=== PATIENT | female | born 1960 | race Caucasian/White ===

== ENCOUNTER → 2018-03-22 | Day surgery (SDC) | payer BC ==
[~2018-03-22] VITALS: Ht 170.2 cm; Wt 103.0 kg
[~2018-03-22] MED LIST: ACETAMINOPHEN 1000 MG/100 ML 100 ML IV ONE; APREPITANT 40 MG CAP ONE; BUPIVACAINE/EPINEPHRINE 0.5% PF 10 ML VIAL ONE; CHLORHEXIDINE GLUCONATE 2 % 1 PACK (2 CLOTHS) TOPICAL PRN; DEXAMETHASONE SOD PHOS 4 MG/ML VIAL IV ONE; DO NOT ADM ANY ANTICOAGULANT DRUGS PRN; FAMOTIDINE 20 MG/2 ML VIAL ONE; FERR325T18 PO; GLYCOPYRROLATE 1 MG/5 ML SYRINGE IV PUSH ONE; KETOROLAC TROMETHAMINE 30 MG/ML (IVP) VIAL IV PUSH ONE; LACTATED RINGER'S 1000 ML INJ 1,000 ML IV ONE; LACTATED RINGER'S 1000 ML IV PRN; LIDOCAINE HCL 1% PF 5 ML SYRINGE OTHER ONE; METHYLENE BLUE 10 MG/ML VIAL ONE; METOPROLOL TARTRATE 25 MG TAB PO PRN; MIDAZOLAM HCL 2 MG/2 ML VIAL ONE; MORPHINE SULFATE 4 MG/ML INJ IV PUSH PRN; MULT-65 PO; NEOSTIGMINE 5 MG/5 ML SYRINGE IV PUSH ONE; NORT1TAB PO; ONDANSETRON HCL 4 MG/2 ML VIAL IV PUSH SCH; ONDANSETRON ODT 4 MG TAB PO PRN; PHENYLEPH/NS 1000 MCG/10 ML SYR IV ONE; POVIDONE IODINE 5% (ANTISEPSIS KIT) 4 APPLICATIONS EACH NARE PRN; PROPOFOL 200 MG/20 ML AMP IV ONE; ROCURONIUM INJ 50 MG/5 ML SYRINGE IV PUSH ONE; SODIUM CHLORID 0.9% 500 ML IV PRN; SUDO60TA2 PO; VITA500T83 PO; VITACAP7 PO; oxyCODONE/ACETAMINOPHEN 5 MG/325 MG TAB PO PRN
[2018-03-22] MEDS: ceFAZolin 2 GM PREMIX 50 ML IV SCH ×6 (08:21→10:51)
[2018-03-22 12:15] VITALS: BP 116/65; PULSE 71; RESP 18; TEMP 97.8; O2SAT 97
--- NOTE | 2018-03-22 22:16 | EKG ---
Date Performed: 03/22/2018 Time Performed: 07:04:32 PTAGE: 57 years EKG: Sinus rhythm WITH OCCASIONAL SUPRAVENTRICULAR PREMATURE COMPLEXES BORDERLINE ECG PREVIOUS TRACING : 10/07/2010 13.39 Since the previous tracing, no significant change noted DOCTOR: Jose Castle Interpretating Date/Time 03/22/2018 22:15:34
--- NOTE | 2018-03-26 11:01 | MP ---
cc: Brenden Rolon MD DATE OF OPERATION: 03/22/2018 DATE OF OPERATION: 03/22/2018. PREOPERATIVE DIAGNOSIS: Dysfunctional gastric band. POSTOPERATIVE DIAGNOSIS: Slipped gastric band. PROCEDURE PERFORMED: Removal of gastric band and takedown of gastrogastric plication. SURGEON: Manolo Rolon MD POTTERY STRIPER: MD Dr. Luis Turner's assistance was necessary for the procedure due to the complexity of the procedure. Dr. Smith assisted with manipulation and exposure during the procedure. Dr. Smith was present for the entire procedure. ANESTHESIA: General endotracheal anesthesia. ESTIMATED BLOOD LOSS: Less than 10 mL FINDINGS: Slipped gastric band with dilated proximal stomach. Extremely dilated proximal gastric pouch. Adhesions of stomach to the left lobe of the liver. SPECIMENS: None. COMPLICATIONS: None. DESCRIPTION OF PROCEDURE: The patient was brought to the operating room, placed on the operating table in supine position. Bilateral sequential inflation device placed on lower extremities. General anesthesia instituted and antibiotics initiated. The abdomen was prepped and draped sterilely. A point 15 cm distal to the xiphoid in the midline was anesthetized with 0.25% Marcaine and epinephrine and skin incision was made. A 5 mm Optiview port was placed under direct vision. A pneumoperitoneum was created. Under direct vision, two 5 mm right upper quadrant ports and two 5 mm left upper quadrant ports were placed. Prior to placement of all ports the skin and peritoneum were anesthetized with 0.25% Marcaine with epinephrine. There was adhesions of the stomach to the left lobe of the liver. This was taken down sharply. The gastrogastric plication was then sharply. The davina flex retractor was placed and the left lobe of the liver retracted. The band was divided and removed from around the stomach. There was adhesive band around the stomach that was vertically. The tubing of the band was divided. A 12 mm port was placed in the epigastrium and the band was removed through this port site. The capsule around the stomach was dissected anteriorly. Care was taken not to enter the stomach during the dissection. The operative field was inspected and hemostasis was achieved. The davina flex retractor was removed. CO2 was released. All ports were removed. The subcutaneous tissue overlying the abdominal wall port was dissected. The lap band port was identified. The capsule surrounding this was and the port was then removed from the fascia. The subcutaneous tissue was then approximated with 3-0 Vicryl. All skin incisions were closed with 4-0 Monocryl. The abdominal wall was cleaned and a sterile dressing placed. The patient was awakened and taken to the Recovery Room. MD CALEB Quevedo/RADHA , 10:06 AM , 11:00 AM
== END | disposition home or self-care (01) ==
LOC: HSDC 06:12
PROVIDERS: ATTEND Surgery
DX: K95.09 Other complications of gastric band procedure (principal); E66.9 Obesity, unspecified; K21.9 Gastro-esophageal reflux disease without esophagitis; R94.31 Abnormal electrocardiogram [ECG] [EKG]; Z68.35 Body mass index [BMI] 35.0-35.9, adult
CPT/HCPCS: 00797; 43774; 93005; J0131; J0690; J1100; J1885; J2250; J2370; J2405; J2710; J3010; J7120; J8501